=== PATIENT | male | born 1975 | race American Indian/Alaskan Native ===

== ENCOUNTER 2024-11-22 00:30 | Emergency (ER) | payer BC ==
[2024-11-22] MEDS: Cephalexin 500 MG Cap PO ONE (02:02)
[2024-11-22] MEDS: predniSONE 20 MG Tab PO ONE (02:02)
== END 2024-11-22 02:09 | disposition home or self-care (01) ==
LOC: JD.ED 00:30
DX: R21 Rash and other nonspecific skin eruption (principal); Z88.2 Allergy status to sulfonamides; Z79.52 Long term (current) use of systemic steroids; Z79.899 Other long term (current) drug therapy
CPT/HCPCS: 99282; A9270; J7512